=== PATIENT | male | born 1985 | race Caucasian/White ===

== ENCOUNTER 2018-07-24 21:26 | Emergency (ER) | payer OTHER ==
[2018-07-24 21:40] VITALS: BP 111/74; PULSE 72; RESP 16; TEMP 97.6; O2SAT 98
[2018-07-24] MEDS ORDERED: Lidocaine 1% Inj (20ml) ONE (21:59)
[2018-07-24] MEDS ORDERED: Absorbable Gelatin Sponge Size 12-7 ONE (22:06)
[2018-07-24] MEDS ORDERED: Povidone Iodine Oint 10% Foilpak UD ONE (22:44)
--- NOTE | 2018-07-24 23:18 | ED PDOC ---
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 Patient states he became concerned due to persistent bleeding. Last tetanus was 3 years ago. Past Medical History Vital Signs: Last Vital Signs Temp 97.6 F 07/24/18 21:38 Pulse 72 07/24/18 21:38 Resp 16 07/24/18 21:38 BP 111/74 07/24/18 21:38 Pulse Ox 98 07/24/18 21:38 ELIDA Report Viewed: No Primary Care Provider: KEYANA NAVARRO - Medical History PMH: No Chronic Diseases - Surgical History Surgical History: No Surg Hx - Family History Family History: States: Unknown Family Hx - Living Arrangements Living Arrangements: With Family - Immunization History Hx Tetanus Toxoid Vaccination: Yes - Home Medications Home Medications: Ambulatory Orders Medication Instructions Recorded Cephalexin [Keflex] 500 mg PO Q6H #20 capsule 07/24/18 - Allergies Allergies/Adverse Reactions: Allergies Allergy/AdvReac Type Severity Reaction Status Date / Time No Known Allergies Allergy Verified 07/24/18 21:38 Review of Systems ROS Statement: Except As Marked, All Systems Reviewed And Found Negative Skin: Positive for: Other (right 4th digit finger laceration) Physical Exam - Reviewed Nursing Documentation Reviewed: Yes Vital Signs Reviewed: Yes - Physical Exam Appears: Positive for: Well, Non-toxic, No Acute Distress Head Exam: Positive for: ATRAUMATIC, NORMAL INSPECTION, NORMOCEPHALIC Skin: Positive for: Normal Color Eye Exam: Positive for: Normal appearance Neck: Positive for: Normal Cardiovascular/Chest: Positive for: Regular Rate, Rhythm Respiratory: Positive for: CNT, Normal Breath Sounds Gastrointestinal/Abdominal: Positive for: Normal Exam, Soft Back: Positive for: Normal Inspection Extremity: Positive for: Normal ROM, Capillary Refill (right hand: <2secs cap refill ), Other (lacertion to right 4 th digit, approx 1.5cm in length "L" shape, less 0.5cm deep. persistent bleeding. clean edges. ). Negative for: Deformity Lymphatic: Positive for: Deferred Neurological/Psych: Positive for: Awake, Alert, Normal Tone, Oriented - ECG O2 Sat by Pulse Oximetry: 98 Procedures - Time-Out Type of Procedure: laceration repair Correct Patient: Yes Correct Procedure: Yes Correct Site Marked: NA X-Ray Marked: HANNA PA/Tech: anastacio dent - Laceration/Wound Repair Right Anterior Distal Finger Wound Length (cm): 1.5 Wound's Depth, Shape: into muscle Wound Explored: clean Irrigated w/ Saline (ccs): 100 Betadine Prep?: Yes Anesthesia: 1% Lidocaine Wound Debrided: moderate Wound Repaired With: Sutures Suture Size/Type: 5:0 Number of Sutures: 3 Layer Closure?: No Wound Complexity: Simple Sterile Dressing Applied?: Yes Splint Applied?: No Progress: Patient tolerated well Disposition - Clinical Impression Clinical Impression: Finger laceration - Patient ED Disposition Is Patient to be Admitted: No Counseled Patient/Family Regarding: Diagnosis - Disposition Disposition: Routine/Home Disposition Time: 23:15 Condition: GOOD Prescriptions: Cephalexin [Keflex] 500 mg PO Q6H #20 capsule Instructions: Laceration Repair With Stitches (DC) Forms: [employer] (Uzbek) - POA Present On Arrival: None
== END 2018-07-24 23:24 | disposition home or self-care (01) ==
LOC: H.ER 21:26
DX: S61.214A Laceration without foreign body of right ring finger without damage to nail, initial encounter (principal); W26.8XXA Contact with other sharp object(s), not elsewhere classified, initial encounter; Y92.89 Other specified places as the place of occurrence of the external cause